=== PATIENT | female | born 1935 | race African-American/Black ===

== ENCOUNTER 2019-01-03 09:11 | Inpatient (IN) | payer MEDICARE ==
[~2019-01-03] VITALS: Ht 157.5 cm; Wt 50.3 kg
[2019-01-03 11:33] LABS: BASOPHILS % 2.4 % (0.0-2.0); EOSINOPHILS % 1.2 % (0.0-5.0); HEMATOCRIT. 37.6 % (36.0-48.0); HEMOGLOBIN. 12.5 g/dL (12.0-16.0); LYMPHOCYTES % 22.5 % (20.0-50.0); MEAN CORPUSCULAR HEMOGLOBIN 30.9 pg (28.0-32.0); MEAN CORPUSCULAR VOLUME 93.2 fL (81.0-99.0); MEAN PLATELET VOLUME 7.6 fl (7.4-10.4); MONOCYTES % 4.5 % (2.0-8.0); NEUTROPHILS % 69.4 % (40.0-76.0); PLATELET 217 x1000/uL (130-400); RED BLOOD CELL COUNT 4.03 mill/uL (4.2-5.4); RED CELL DISTRIBUTION WIDTH 14.7 % (11.6-14.6)
[2019-01-03 11:37] LABS: CHLORIDE 112 mEq/L (98-107)
[2019-01-03] MEDS ORDERED: FUROSEMIDE 100MG/10ML VIAL IV STA (11:56)
[2019-01-03] MEDS ORDERED: ALBUTEROL (0.083%) 2.5MG/3ML NEB HHN ONE (12:00)
[2019-01-03] MEDS ORDERED: DEXTROSE 50% WATER 50ML SYRINGE IV ONE (12:00)
[2019-01-03] MEDS ORDERED: CALCIUM CHLORIDE 1GM/10ML SYR IV ONE (12:00)
[2019-01-03] MEDS ORDERED: SODIUM BICARBONATE 8.4% 1 MEQ/ML 50ML SYR IV ONE (12:00)
[2019-01-03] MEDS ORDERED: INSULIN REGULAR (HUMULIN R) 300UNITS/3ML IV ONE (12:00)
[2019-01-03] MEDS ORDERED: ONDANSETRON HCL 4MG/2ML INJ IV ONE (12:30)
[2019-01-03] MEDS ORDERED: MAGNESIUM/ALUMINUM HYDROXIDE/SIMETHICONE 30ML UDC PO PRN (15:00)
[2019-01-03] MEDS ORDERED: IPRATROPIUM/ALBUTEROL 0.5-3(2.5)MG/3ML NEB INH PRN (15:00)
[2019-01-03] MEDS ORDERED: HYDROCODONE/ACETAMINOPHEN 5/325MG TABLET PO PRN (15:00)
[2019-01-03] MEDS ORDERED: GUAIFENESIN 200MG/10ML SUGAR FREE UDC PO PRN (15:00)
[2019-01-03] MEDS ORDERED: ONDANSETRON HCL 4MG/2ML INJ IV PRN (15:00)
[2019-01-03] MEDS ORDERED: DOCUSATE SODIUM 100MG CAPSULE PO PRN (15:00)
[2019-01-03] MEDS ORDERED: ACETAMINOPHEN 325MG TABLET PO PRN (15:00)
[2019-01-03] MEDS ORDERED: CLONIDINE 0.1MG TABLET PO PRN (15:00)
[2019-01-03] MEDS ORDERED: DIPHENHYDRAMINE 50MG/ML VIAL IV PRN (15:00)
[2019-01-03] MEDS ORDERED: ACETAMINOPHEN 650MG SUPP PR PRN (15:00)
[2019-01-03] MEDS ORDERED: LORAZEPAM 0.5MG TABLET PO PRN (15:00)
[2019-01-03 17:24] VITALS: BP 133/69
[2019-01-03] MEDS ORDERED: SODIUM POLYSTYRENE SULFONATE 15 G/60 ML BOT PO SCH (18:00)
[2019-01-03 20:00] VITALS: BP 167/77
[2019-01-03] MEDS: HEPARIN 5000 UNITS/ML VIAL SUBCUT SCH (20:39)
[2019-01-04 00:05] VITALS: BP 159/73
[2019-01-04 04:00] VITALS: BP 144/62
[2019-01-04 06:33] LABS: BASOPHILS % 2.3 % (0.0-2.0); EOSINOPHILS % 1.1 % (0.0-5.0); HEMATOCRIT. 36.5 % (36.0-48.0); LYMPHOCYTES % 16.5 % (20.0-50.0); MEAN CORPUSCULAR HEMOGLOBIN 30.5 pg (28.0-32.0); MEAN PLATELET VOLUME 7.7 fl (7.4-10.4); MONOCYTES % 9.5 % (2.0-8.0); NEUTROPHILS % 70.6 % (40.0-76.0); PLATELET 165 x1000/uL (130-400); RED BLOOD CELL COUNT 3.93 mill/uL (4.2-5.4); RED CELL DISTRIBUTION WIDTH 14.6 % (11.6-14.6)
[2019-01-04 06:43] LABS: CHLORIDE 106 mEq/L (98-107)
[2019-01-04 06:54] LABS: LDL CHOLESTEROL 140 mg/dL (5-100)
[2019-01-04 06:55] LABS: HDL CHOLESTEROL 65 mg/dL (40-59); T4 FREE 1.06 ng/dL (0.76-1.46)
[2019-01-04 08:00] VITALS: BP 136/71
[2019-01-04] MEDS: AMLODIPINE 5MG TABLET PO SCH (08:48)
[2019-01-04] MEDS: HEPARIN 5000 UNITS/ML VIAL SUBCUT SCH ×2 (08:49→22:22)
[2019-01-04 12:00] VITALS: BP 147/85
[2019-01-04 16:00] VITALS: BP 159/84
[2019-01-04 20:00] VITALS: BP 110/95
[2019-01-05] VITALS: BP 115/86
[2019-01-05 04:00] VITALS: BP 115/86
[2019-01-05 06:05] LABS: HEMOGLOBIN 11.7 g/dL (12.0-16.0); MEAN CORPUSCULAR HEMOGLOBIN 30.7 pg (28.0-32.0); MEAN CORPUSCULAR VOLUME 91.5 fL (81.0-99.0); PLATELET 163 x1000/uL (130-400); RED BLOOD CELL COUNT 3.82 mill/uL (4.2-5.4); RED CELL DISTRIBUTION WIDTH 14.6 % (11.6-14.6)
[2019-01-05] MEDS: HEPARIN 5000 UNITS/ML VIAL SUBCUT SCH ×2 (09:00→20:41)
[2019-01-05] MEDS: AMLODIPINE 5MG TABLET PO SCH (09:15)
[2019-01-05 10:00] VITALS: BP 122/62
[2019-01-05 12:00] VITALS: BP 110/59
[2019-01-05 16:00] VITALS: BP 103/56
[2019-01-05] MEDS ORDERED: LORAZEPAM 0.5MG TABLET PO PRN (19:00)
[2019-01-05 20:00] VITALS: BP 118/59
[2019-01-05] MEDS: ATORVASTATIN CALCIUM 20MG TABLET PO SCH (20:40)
[2019-01-05] MEDS: DOXEPIN HCL 25MG CAPSULE PO SCH (21:55)
[2019-01-06] VITALS: BP 115/63
[2019-01-06 04:00] VITALS: BP 123/53
[2019-01-06 06:39] LABS: HEMATOCRIT 39.1 % (36.0-48.0); HEMOGLOBIN 12.8 g/dL (12.0-16.0); MEAN CORPUSCULAR HEMOGLOBIN 30.2 pg (28.0-32.0); MEAN CORPUSCULAR VOLUME 92.5 fL (81.0-99.0); PLATELET 128 x1000/uL (130-400); RED BLOOD CELL COUNT 4.23 mill/uL (4.2-5.4); RED CELL DISTRIBUTION WIDTH 14.7 % (11.6-14.6)
[2019-01-06 08:00] VITALS: BP 128/70
[2019-01-06] MEDS: AMLODIPINE 5MG TABLET PO SCH (08:33)
[2019-01-06] MEDS: HEPARIN 5000 UNITS/ML VIAL SUBCUT SCH ×2 (09:00→23:41)
[2019-01-06 12:00] VITALS: BP 135/54
[2019-01-06 16:00] VITALS: BP 102/56
[2019-01-06 16:09] LABS: HEPATITIS B SURFACE AB < 3.1 mIU/mL
[2019-01-06 16:20] LABS: HEPATITIS B SURFACE ANTIGEN NEGATIVE
[2019-01-06 20:00] VITALS: BP 141/74
[2019-01-06] MEDS: ATORVASTATIN CALCIUM 20MG TABLET PO SCH (23:40)
[2019-01-06] MEDS: DOXEPIN HCL 25MG CAPSULE PO SCH (23:40)
[2019-01-07] VITALS: BP 98/50
[2019-01-07 04:00] VITALS: BP 115/61
[2019-01-07 06:46] LABS: HEMATOCRIT 35.7 % (36.0-48.0); HEMOGLOBIN 11.8 g/dL (12.0-16.0); MEAN CORPUSCULAR HEMOGLOBIN 30.4 pg (28.0-32.0); MEAN CORPUSCULAR VOLUME 92.3 fL (81.0-99.0); PLATELET 164 x1000/uL (130-400); RED BLOOD CELL COUNT 3.87 mill/uL (4.2-5.4); RED CELL DISTRIBUTION WIDTH 14.4 % (11.6-14.6)
[2019-01-07 08:00] VITALS: BP 116/52
[2019-01-07] MEDS: HEPARIN 5000 UNITS/ML VIAL SUBCUT SCH ×2 (09:02→23:20)
[2019-01-07] MEDS: AMLODIPINE 5MG TABLET PO SCH (09:02)
[2019-01-07 12:00] VITALS: BP 97/46
[2019-01-07 16:00] VITALS: BP 98/53
[2019-01-07 20:00] VITALS: BP 126/76
[2019-01-07] MEDS: ATORVASTATIN CALCIUM 20MG TABLET PO SCH (21:21)
[2019-01-07] MEDS: DOXEPIN HCL 25MG CAPSULE PO SCH (23:20)
[2019-01-08] VITALS: BP 120/75
[2019-01-08 04:00] VITALS: BP 132/77
[2019-01-08 08:00] VITALS: BP 141/70
[2019-01-08] MEDS: AMLODIPINE 5MG TABLET PO SCH (08:58)
[2019-01-08] MEDS: HEPARIN 5000 UNITS/ML VIAL SUBCUT SCH ×2 (09:07→21:40)
[2019-01-08 12:00] VITALS: BP 117/57
[2019-01-08 16:00] VITALS: BP 126/54
[2019-01-08 20:00] VITALS: BP 111/45
[2019-01-08] MEDS: DOXEPIN HCL 25MG CAPSULE PO SCH (21:40)
[2019-01-08] MEDS: ATORVASTATIN CALCIUM 20MG TABLET PO SCH (21:40)
[2019-01-09] VITALS: BP 114/59
[2019-01-09 04:00] VITALS: BP 121/57
[2019-01-09 08:00] VITALS: BP 103/64
[2019-01-09] MEDS: AMLODIPINE 5MG TABLET PO SCH (09:00)
[2019-01-09] MEDS: HEPARIN 5000 UNITS/ML VIAL SUBCUT SCH (09:17)
[2019-01-09 12:00] VITALS: BP 109/70
[2019-01-09 16:00] VITALS: BP 140/60
[2019-01-09 16:25] VITALS: BP 140/60
== END 2019-01-09 17:30 | disposition home or self-care (01) | DRG 640 ==
LOC: ER 09:11 → 7WST 12:28 → EDBEDREQ 12:30 → EDBEDREQTM 12:30 → ENRESERV 15:17
PROVIDERS: ADMIT Internal Medicine; ATTEND Internal Medicine
PROC: 5A1D70Z Performance of Urinary Filtration, Intermittent, Less than 6 Hours Per Day (ICD-10-PCS; principal; 2019-01-03)
PROC: 5A1D70Z Performance of Urinary Filtration, Intermittent, Less than 6 Hours Per Day (ICD-10-PCS; 2019-01-05)
PROC: 5A1D70Z Performance of Urinary Filtration, Intermittent, Less than 6 Hours Per Day (ICD-10-PCS; 2019-01-08)
DX: E87.5 Hyperkalemia (principal); N18.6 End stage renal disease; I12.0 Hypertensive chronic kidney disease with stage 5 chronic kidney disease or end stage renal disease; F03.90 Unspecified dementia, unspecified severity, without behavioral disturbance, psychotic disturbance, mood disturbance, and anxiety; E78.5 Hyperlipidemia, unspecified; Z99.2 Dependence on renal dialysis; E86.0 Dehydration
CPT/HCPCS: 36415; 71045; 80048; 80061; 84132; 84439; 84443; 84484; 85027; 86705; 86706; 86803; 87340; 93005; 93306; 93970; 96374; 96375; 97116; 97162; 97530; 99285; J1644; J1815; J1940; J2405; J3490

== ENCOUNTER 2019-07-27 12:47 | Emergency (ER) | payer MEDICARE ==
[~2019-07-27] VITALS: Ht 167.6 cm; Wt 59.0 kg
[2019-07-27] MEDS ORDERED: SODIUM CHLORIDE 0.9% 1,000 ML IV ONE (13:11)
[2019-07-27 14:33] LABS: HEMATOCRIT. 38.8 % (36.0-48.0); HEMOGLOBIN. 13.1 g/dL (12.0-16.0); MEAN CORPUSCULAR HEMOGLOBIN 29.9 pg (28.0-32.0); MEAN CORPUSCULAR VOLUME 88.4 fL (81.0-99.0); MEAN PLATELET VOLUME 7.5 fl (7.4-10.4); PLATELET 247 x1000/uL (130-400); RED BLOOD CELL COUNT 4.39 mill/uL (4.2-5.4); RED CELL DISTRIBUTION WIDTH 17.2 % (11.6-14.6)
[2019-07-27 14:36] LABS: CHLORIDE 101 mEq/L (98-107)
[2019-07-27 15:08] LABS: PLATELET ESTIMATE NORMAL
[2019-07-27 16:35] VITALS: BP 126/79
== END 2019-07-27 16:47 | disposition left against medical advice (07) ==
LOC: ER 13:21 → CANBEDREQ 19:43
DX: R55 Syncope and collapse (principal); N18.6 End stage renal disease; Z99.2 Dependence on renal dialysis; I12.0 Hypertensive chronic kidney disease with stage 5 chronic kidney disease or end stage renal disease; E11.22 Type 2 diabetes mellitus with diabetic chronic kidney disease
CPT/HCPCS: 36415; 71045; 80053; 83880; 84484; 85025; 93005; 96360; 96361; 99284; J7030